=== PATIENT | male | born 1955 | race Caucasian/White ===

== ENCOUNTER 2019-07-03 08:15 | Emergency (ER) | payer MEDICARE ==
[2019-07-03 08:27] VITALS: O2SAT 99
--- NOTE | 2019-07-03 08:32 | ERPHSYRPT ---
- History of Present Illness Time Seen by Provider: 07/03/19 08:32 Source: patient Exam Limitations: no limitations Patient Subjective Stated Complaint: Pt states "My right nipple is swollen. It did this one other time about 15 years ago and they pulled infection out of it. It started about 3 days ago. My left breast has hurt for over a year and I have been to a dr and no one is doing anything." Triage Nursing Assessment: Pt presented alert and orientd X 3, skin pwd Pt ambulates with an upright steady gait, able to speak in clear full sentnces. pt left nipple slightly swollen. Physician History: 64 yo presnted with 3 days wof dull aching/burning pain in left nipple/areolar area with mild swelling underneath and painful to palpation. had similar sx longtime ago needing I&D . denies fever/plucking hairs /trauma etc. no h/o MRSA Timing/Duration: day(s) (3) Quality: burning, painful Severity: mild Location: other (left nipple/areaola) Possible Causes: no cause identified Associated Symptoms: denies symptoms Allergies/Adverse Reactions: No Known Drug Allergies Allergy (Unverified 07/03/19 08:27) Home Medications: Amlodipine Besylate 10 mg PO DAILY 07/03/19 [History] Atorvastatin Calcium 40 mg PO DAILY 07/03/19 [History] Losartan Potassium 100 mg PO DAILY 07/03/19 [History] Tamsulosin HCl 0.4 mg PO DAILY 07/03/19 [History] Hx Tetanus, Diphtheria Vaccination/Date Given: No Hx Influenza Vaccination/Date Given: No Hx Pneumococcal Vaccination/Date Given: No Immunizations Up to Date: Yes - Review of Systems Constitutional: No Symptoms Eyes: No Symptoms Ears, Nose, & Throat: No Symptoms Respiratory: No Symptoms Cardiac: No Symptoms Abdominal/Gastrointestinal: No Symptoms Skin: Cellulitis, Rash Neurological: No Symptoms - Past Medical History Pertinent Past Medical History: Yes Neurological History: No Pertinent History ENT History: Glaucoma Cardiac History: High Cholesterol, Hypertension Respiratory History: No Pertinent History Endocrine Medical History: No Pertinent History Musculoskeletal History: No Pertinent History GI Medical History: GERD History: No Pertinent History Psycho-Social History: No Pertinent History Male Reproductive Disorders: No Pertinent History - Past Surgical History Past Surgical History: No - Social History Smoking Status: Current every day smoker How long have you smoked: years Exposure to second hand smoke: Yes Drug Use: marijuana Patient Lives Alone: No - Nursing Vital Signs Nursing Vital Signs: Initial Vital Signs Pulse Rate 99 H 07/03/19 08:21 Respiratory Rate 18 07/03/19 08:21 Blood Pressure 203/92 07/03/19 08:21 O2 Sat by Pulse Oximetry 99 07/03/19 08:21 Pain Scale Pain Intensity 2 - Physical Exam General Appearance: no apparent distress Eye Exam: eyes nml inspection Ears, Nose, Throat Exam: normal ENT inspection, TMs normal Neck Exam: normal inspection, non-tender Respiratory Exam: normal breath sounds, chest tenderness (sweollen left areola/ nipple area, indurated. tender to palpation, mobile . no fluctuation, minimal redness on medial to areola. ) Cardiovascular Exam: regular rate/rhythm, normal heart sounds Extremity Exam: normal inspection, normal range of motion Neurologic Exam: alert, oriented x 3, cooperative SpO2 Interpretation: normal SpO2: 99 O2 Delivery: Room Air - Progress Progress: unchanged Progress Note: 07/03/19 08:53 doesnot want any pain meds. no need for I&D at present. start on augmentin. outpatient follow up with pcp tomorrow as scheduled. BP elevated and improved to T. systolic without any intervention. Patient denies any chest pain palpitations and slight shortness of breath/headache/dizziness/lightheadedness/ blurry vision. He has not taken his blood pressure medications today. I have advised him to take his routine medications and compliance counseling. Do not think he needs any workup for that. Stable for discharge with outpatient followup. As the signs symptoms or worsening in the ER which is in understanding. 07/03/19 08:57 07/03/19 09:17 Counseled pt/family regarding: diagnosis, need for follow-up - Departure Departure Disposition: Home Clinical Impression: Cellulitis of breast of male Condition: Stable Critical Care Time: No Referrals: MITESH GOLDSMITH [Primary Care Provider] - Follow Up with PCP Prescriptions: Amox Tr/Potass Clav. 875 mg [Augmentin 875-125 Tablet] 875 mg PO BID #20 tablet
[2019-07-03 09:07] VITALS: BP 179/82; PULSE 76
== END 2019-07-03 09:19 | disposition home or self-care (01) ==
LOC: ED 08:15
DX: N61.0 Mastitis without abscess (principal)
CPT/HCPCS: 99283